=== PATIENT | female | born 1950 | race Caucasian/White ===

== ENCOUNTER 2024-02-29 15:50 | Emergency (ER) | payer OTHER ==
[2024-02-29 16:05] VITALS: BP 128/72; PULSE 71; RESP 20; TEMP 97.6; BMI 25.5
[2024-02-29] MEDS: ACETAMINOPHEN 1000 MG/100 ML BAG IVPB ONE (17:21)
[2024-02-29] MEDS ORDERED: ACETAMINOPHEN INJECTION 100 ML IVPB ONE (17:23)
[2024-02-29 17:57] LABS: ALBUMIN 4.4 g/dl (3.4-5.0); BILIRUBIN,TOTAL 1.1 mg/dl (0.2-1); CALCIUM 9.7 mg/dl (8.5-10.1); POTASSIUM 4.6 mmol/L (3.5-5.1); TOT PROT 7.1 g/dl (6.4-8.2)
[2024-02-29 18:04] LABS: HEMOGLOBIN 13.6 G/dL (10.7-15.3); MCH 28.3 pg (25.7-33.7); MCHC 31.7 g/dl (32.0-36.0); MEAN CELL VOLUME 89.5 fl (80-96); MEAN PLT VOLUME 10.3 fl (7.5-11.1); PLATELET COUNT 172.6 10^3/uL (134-434); RBC 4.81 10^6/uL (3.60-5.2); RDW 15.1 % (11.6-15.6)
[2024-02-29 18:05] LABS: INR 1.85 (0.83-1.09); PROTHROMBIN TIME (PATIENT) 20.7 SEC (9.7-13.0)
[2024-02-29 18:08] LABS: ACTIVATED PTT 55.9 SECONDS (25.2-36.5)
[2024-02-29 18:59] LABS: N-TERMINAL BNP 520.1 pg/ml (5-125)
[2024-02-29 19:50] LABS: PLATELET ESTIMATE ADEQUATE
[2024-02-29] MEDS: ACETAMINOPHEN 500 MG TABLET (FP) PO ONE (20:36)
[2024-02-29] MEDS ORDERED: ACETAMINOPHEN 500 MG TABLET (FP) ONE (20:37)
[2024-02-29] MEDS ORDERED: LIDOCAINE 5% TOPICAL PATCH ONE (20:38)
[2024-02-29] MEDS: LIDOCAINE 5% TOPICAL PATCH TP ONE (20:39)
[2024-02-29] MEDS ORDERED: LIDOCAINE PATCH REMOVAL MC SCH (22:00)
== END 2024-02-29 20:56 | disposition home or self-care (01) ==
LOC: FER 15:50
PROC: 3E033NZ Introduction of Analgesics, Hypnotics, Sedatives into Peripheral Vein, Percutaneous Approach (ICD-10-PCS; principal; 2024-02-29)
DX: R07.89 Other chest pain (principal); M54.6 Pain in thoracic spine
CPT/HCPCS: 36415; 71045-TC-FY; 71275-TC; 80053; 83880; 84484; 85027; 85610; 85730; 93005; 96374; 99285-25; J0131; Q9967